=== PATIENT | male | born 1965 | race Caucasian/White ===

== ENCOUNTER 2022-03-13 16:39 | Inpatient (IN) ==
[2022-03-13 17:28] LABS: Basophils # (auto) 0.03 K/uL (0-0.2); Basophils % (auto) 0.4 %; Eosinophils # (auto) 0.11 K/uL (0-0.5); Eosinophils % (auto) 1.6 %; Hematocrit (blood only) 45.5 % (42-52); Hemoglobin 15.5 g/dL (14.0-18.0); Immature Granulocytes # (auto) 0.01 K/uL (0.00-0.02); Immature Granulocytes % (auto) 0.1 %; Lymphocytes # (auto) 1.55 K/uL (1.2-3.4); Mean Corpuscular Hemoglobin 30.4 pg (25-34); Mean Corpuscular Hgb Conc 34.1 g/dL (32-36); Mean Corpuscular Volume 89.2 fL (80-100); Mean Platelet Volume 8.5 fL (7.4-10.4); Monocytes # (auto) 0.39 K/uL (0.11-0.59); Monocytes % (auto) 5.5 %; Neutrophils # (auto) 4.96 K/uL (1.4-6.5); Neutrophils % (auto) 70.4 %; Platelet Count 369 K/uL (130-400); RDW Coefficient of Variation 15.1 % (11.5-14.5); RDW Standard Deviation 49.6 fL (36.4-46.3); White Blood Count 7.05 K/uL (4.8-10.8)
[2022-03-13 17:59] LABS: Alanine Aminotransferase 13 U/L (7-52); Albumin Globulin Ratio 1.2 (0.9-2); Alkaline Phosphatase 95 U/L (34-104); Anion Gap 8 (3-11); Aspartate Aminotransferase 13 U/L (13-39); BUN Creatinine Ratio 25.3 (10-20); Bilirubin,Total 0.7 mg/dl (0.2-1.0); Blood Urea Nitrogen 20 mg/dl (6-23); Calcium 9.2 mg/dl (8.5-10.1); Carbon Dioxide 25 mmol/L (21-32); Chloride 107 mmol/L (98-107); Est GFR (African American) 117.2 ml/min; Est GFR (Non-African American) 101.1 ml/min; Globulin 3.3 gm/dl (2.5-4.0); Glucose 113 mg/dl (70-99(Fasting)); Potassium 3.9 mmol/L (3.5-5.1); Sodium 140 mmol/L (136-145); Total Protein 7.3 gm/dl (6.0-8.3)
--- NOTE | 2022-03-13 19:05 | Surgery Consultation ---
Date of Consultation March 13, 2022 Assessment & Plan (1) Appendicitis: pt is a 57 year-old male who presents to Er with 3 weeks history abdominal pain, IMP: appendicitis, Plan, base on pt is full stomach with HTN 175/123, I recommend to admit to hospital and NPO, IV fluid, antibiotic, control pain, control HTN, with consult hospitalist , I will do laparoscopic appendectomy, possible open tomorrow morning, D/W benefits, risks and alternatives of the surgery, the risks - infection,bleeding, abscess, injury other organs, IA, DVT, stroke, , pt and his understood, they agree with the plan, I answered all questions, History of Present Illness Reason for Consultation: appendicitis History of Present Illness CC: abdominal pain for 3 weeks, HPI: pt is a 57 year-old male who presents to ER with 3 weeks history abdominal pain the pain is located at epigastric and RLQ area, with nausea, and vomiting, chills in and out, the pain is about 4/10, the pain is not radiate to back, pt denies chest pain, no diarrhea, no headache, no cough, pt had COVID-19 positive in 01/09, pt said he just ate large hamburger with drink 2-3 hours ago, pt had CT scan at outside hospital diagnosis- appendicitis, Allergies Allergy/AdvReac Type Severity Reaction Status Date / Time amoxicillin Allergy Severe RASH Verified 03/13/22 09:39 Iodinated Contrast Media Allergy Severe severe N/V Verified 03/13/22 09:39 morphine Allergy Severe SEVERE Verified 03/13/22 09:39 HYPERTENSION metrizamide Allergy Intermediate n/v Verified 03/13/22 09:39 ibuprofen [From Motrin] AdvReac Unknown r/t Verified 03/13/22 09:39 hematomachrosis Home Medications Medication Instructions Recorded Confirmed Type melatonin 3 mg capsule 3 mg PO HS PRN #90 cap 04/18/20 03/13/22 Rx metoprolol succinate 50 mg 50 mg PO HS 05/02/20 03/13/22 History tablet,extended release 24 hr (Toprol XL) nitroglycerin 0.4 mg sublingual 0.4 mg SL Q5M PRN #25 tab 05/02/20 03/13/22 Rx tablet (Nitrostat) aspirin 81 mg tablet,delayed 81 mg PO QAM 07/12/20 03/13/22 History release (Adult Low Dose Aspirin) magnesium 250 mg tablet 250 mg PO QAM 07/12/20 03/13/22 History riboflavin (vitamin B2) 400 mg 400 mg PO QAM 07/12/20 03/13/22 History tablet topiramate 50 mg tablet 50 mg PO QAM 07/12/20 03/13/22 History atorvastatin 20 mg tablet 20 mg PO HS #90 tab 02/25/22 03/13/22 Rx fluticasone propionate 93 1 spray INTRANASAL UD 03/13/22 03/13/22 History mcg/actuation breath activated aerosol (Xhance) meloxicam 15 mg tablet 15 mg PO DAILY 03/13/22 03/13/22 History Patient History Medical History CAD (coronary artery disease) Cholelithiasis Colon polyps COVID-19 virus infection Fatty liver Hereditary hemochromatosis Hyperlipidemia Migraine Morbid obesity Myocardial Infarction Osteoarthritis Surgical History H/O arthroscopic knee surgery H/O colonoscopy H/O shoulder surgery History of cardiac cath History of esophagogastroduodenoscopy (EGD) History of inguinal hernia repair History of knee replacement Family History Grandfather Prostate cancer Myocardial infarction Mother FH: uterine cancer Uncle Cancer Sister Migraines Other No family history of adverse response to anesthesia Social History Smoking Status: Never smoker Second Hand Exposure: No; Hx Alcohol Use: Yes Hx Substance Use: No Preferred Language: Angolan Communication Ability: Effective Industrial Editor Required: No Beliefs That Will Affect Care: None marital status: Current Living Situation: Spouse current occupational status: employed Feels Safe at Home: Yes Dental Care, Regularly: Yes Seatbelt Use: always Do you think of yourself as: straight/heterosexual Assistive Devices: Glasses Review of Systems Constitutional: obesity Eyes: as per Subjective / HPI Respiratory: as per Subjective / HPI COVID-19 + Cardiovascular: Additional Comments: HTN, IA, chest pain, CAD Gastrointestinal: as per Subjective / HPI ([place]) Musculoskeletal: as per Subjective / HPI Neurologic: as per Subjective / HPI Psychiatric: as per Subjective / HPI Endocrine: as per Subjective / HPI Hematologic / Lymphatic: as per Subjective / HPI Physical Exam Constitutional: obesity, no distress, Eyes: PERRL, conjunctivae normal, anicteric sclerae Neck: trachea midline, no thyromegaly Respiratory: normal respiratory effort, lungs clear to auscultation Cardiovascular: RRR, no murmur, no edema Gastrointestinal (Abdomen): soft. mild tenderness at RLQ, no rebound pain, BS +. no distend Musculoskeletal: no cyanosis or clubbing, extremities motor strength 5/5 Neurologic: patellar DTR's 2+ bilat, sensation intact Psychiatric: A+Ox3, euthymic affect Results & Data ([facility]) Vital Signs (Past 12 Hours) Vital Signs Temp Pulse Resp BP Pulse Ox 03/13/22 16:45 36.5 C 98 H 16 175/123 H 100 Laboratory Results Abnormal lab results 03/13/22 03/13/22 Range/Units 17:00 17:00 RDW Std Deviation 49.6 H (36.4-46.3) fL RDW Coeff of Varinder 15.1 H (11.5-14.5) % BUN/Creatinine Ratio 25.3 H (10-20) Glucose 113 H (70-99(Fasting)) mg/dl Diagnostic Findings CT OF THE ABDOMEN AND PELVIS WITH ORAL CONTRAST CLINICAL HISTORY: R10.32 - Left lower quadrant pain. COMPARISON STUDY: No previous studies for comparison. TECHNIQUE: Axial images of the abdomen and pelvis were obtained without IV contrast. Oral contrast was administered. Automated exposure control was utilized for the study. A dose lowering technique was utilized adhering to the principles of ALARA. FINDINGS: Lung bases are unremarkable. No pneumatosis, free air or portal venous gas is present. Punctate calculus within lower pole of the left kidney is noted. A few punctate right renal calculi are present. There are no ureteral calculi. There is no hydronephrosis or hydroureter. Evaluation of the remainder of the abdomen and pelvis is suboptimal on this unenhanced exam. There are numerous small gallstones within gallbladder. There is no evidence for acute cholecystit is. Unenhanced images of the liver, spleen, adrenal glands and pancreas are unremarkable. No peripancreatic or pericholecystic infiltration is present. No pancreatic or biliary ductal dilatation. There is no evidence for a bowel obstruction. No bowel wall thickening is identified on this unenhanced exam. The proximal to mid appendix is normal caliber and fills with oral contrast. The distal appendix is slightly dilated, measuring 8 mm in caliber. Cortical periappendiceal infiltration could be artifactual. There is no free air or abscess. There is no contrast within the appendiceal tip. No lymphadenopathy is present. No ascites is present. No acute fracture or suspicious lesion within visualized skeletal structures. IMPRESSION: 1. Findings equivocal for acute appendicitis. Mildly dilated appendiceal tip with possible trace periappendiceal stranding. Although not strongly suggestive of acute appendicitis, correlation with clinical evidence for acute appendicitis is recommended. 2. Punctate bilateral renal calculi. No ureteral calculi or hydronephrosis. 3. Cholelithiasis. No evidence for acute cholecystitis. 4. No bowel obstruction. No bowel wall thickening on unenhanced exam.
[2022-03-13] MEDS ORDERED: PIPERACILLIN/TAZOBACTAM 4.5 GM/120 ML BAG IV ONE (19:13)
[2022-03-13 19:15] LABS: Appearance Urine Cloudy (Clear); Bacteria Urine Automated Negative (Negative); Bilirubin Urine Negative (Negative); Blood Urine Negative (Negative); Color Urine Dark Yellow; Glucose Urine UA Negative (Negative); Ketones Urine Negative (Negative); Leukocyte Esterase Urine Negative (Negative); Nitrite Urine Negative (Negative); Protein Urine Negative (Negative); RBC Urine Automated 0-4 /hpf (0-4); Specific Gravity Urine 1.022 (1.000-1.030); Urobilinogen Urine Negative (Negative)
[2022-03-13] MEDS ORDERED: METOPROLOL SUCC 50MG EXT REL TAB PO STA (19:24)
--- NOTE | 2022-03-13 19:55 | Emergency Department Note ---
History of Present Illness General Chief Complaint: Abdominal Pain Stated Complaint: CONFIRMED APENDICITIS POST CT, DR DAVENPORT Time Seen by Provider: 03/13/22 17:57 History of Present Illness Provider Complaint: abdominal pain Onset (ago): 3 week(s) Pain Consistency: intermittent Location: RLQ Radiation: none Severity: moderate Maximum Pain Intensity: 5 Current Pain Intensity: 5 Quality: + stabbing, + aching and + sharp Relieved By: + nothing Exacerbated By: + nothing Context: no foreign travel, no possible food poisoning, no sick contacts, no recent antibiotic use, no recent surgery/procedure or no recent injury Associated Symptoms: no nausea, no vomiting, no diarrhea, no fever, no chills, no constipation, no dysuria, no hematemesis, no hematochezia, no melena, no hematuria, no anorexia, no syncope, no headache, no neck pain, no chest pain, no breathing difficulty and no numbness patient had outpatient ct which showed appendicitis Home Medications Medication Instructions Recorded Confirmed Type melatonin 3 mg capsule 3 mg PO HS PRN #90 cap 04/18/20 03/13/22 Rx metoprolol succinate 50 mg 50 mg PO HS 05/02/20 03/13/22 History tablet,extended release 24 hr (Toprol XL) nitroglycerin 0.4 mg sublingual 0.4 mg SL Q5M PRN #25 tab 05/02/20 03/13/22 Rx tablet (Nitrostat) aspirin 81 mg tablet,delayed 81 mg PO QAM 07/12/20 03/13/22 History release (Adult Low Dose Aspirin) magnesium 250 mg tablet 250 mg PO QAM 07/12/20 03/13/22 History riboflavin (vitamin B2) 400 mg 400 mg PO QAM 07/12/20 03/13/22 History tablet topiramate 50 mg tablet 50 mg PO QAM 07/12/20 03/13/22 History atorvastatin 20 mg tablet 20 mg PO HS #90 tab 02/25/22 03/13/22 Rx fluticasone propionate 93 1 spray INTRANASAL UD 03/13/22 03/13/22 History mcg/actuation breath activated aerosol (Xhance) meloxicam 15 mg tablet 15 mg PO DAILY 03/13/22 03/13/22 History Allergies Allergy/AdvReac Type Severity Reaction Status Date / Time amoxicillin Allergy Severe RASH Verified 03/13/22 09:39 Iodinated Contrast Media Allergy Severe severe N/V Verified 03/13/22 09:39 morphine Allergy Severe SEVERE Verified 03/13/22 09:39 HYPERTENSION metrizamide Allergy Intermediate n/v Verified 03/13/22 09:39 ibuprofen [From Motrin] AdvReac Unknown r/t Verified 03/13/22 09:39 hematomachrosis Past Med/Surg History Medical History CAD (coronary artery disease) 50% single vessel disease per pt Cholelithiasis Colon polyps COVID-19 virus infection Fatty liver Hereditary hemochromatosis Hyperlipidemia Migraine Morbid obesity Myocardial Infarction August 2017. follows with Dr Croft. Osteoarthritis Surgical History H/O arthroscopic knee surgery left knee H/O colonoscopy 07/18/2020 H/O shoulder surgery bilateral (multiple) History of cardiac cath August 2017 -- no stents. History of esophagogastroduodenoscopy (EGD) History of inguinal hernia repair History of knee replacement bilateral Family History Grandfather Prostate cancer Myocardial infarction Mother FH: uterine cancer Uncle Cancer Sister Migraines Other No family history of adverse response to anesthesia Social History Smoking Status: Never smoker Second Hand Exposure: No; Hx Alcohol Use: No Hx Substance Use: No Preferred Language: Upper Sorbian Communication Ability: Effective Bench Technician Required: No Beliefs That Will Affect Care: None marital status: Current Living Situation: Spouse current occupational status: employed Feels Safe at Home: Yes Dental Care, Regularly: Yes Seatbelt Use: always Do you think of yourself as: straight/heterosexual Assistive Devices: Glasses Review of Systems A total of 10 systems reviewed and were otherwise negative Physical Exam Vital Signs: Vital Signs - 24 hr 03/13/22 16:45 Temperature 36.5 C Temperature Source Oral Pulse Rate 98 H Respiratory Rate 16 Respiratory Effort / Characteristics Non-Labored Sponta neous Respiratory Depth Normal Blood Pressure 175/123 H Blood Pressure Marisol n 140 Pulse Oximetry 100 Oxygen Delivery Me thod Room Air Sepsis Recent Feve r Within 48 Hours No Sepsis New/Unexpla ined Change in Men celine Status N/A Sepsis Action Take n by Nursing No Action Required Physical Exam: Physical Exam GENERAL: He is oriented to person, place, and time. He appears well-developed and well-nourished. He does not appear distressed. HENT: Exam performed. - Head: Normocephalic and atraumatic. - Right Ear: External ear normal. No mastoid tenderness. - Left Ear: External ear normal. No mastoid tenderness. - Mouth/Throat: The oropharynx is clear and moist. No trismus in the jaw. No dental abscesses or uvula swelling. No oropharyngeal exudate or tonsillar abscesses. EYES: Conjunctivae and EOM are normal. Pupils are equal, round, and reactive to light. Right eye exhibits no discharge. Left eye exhibits no discharge. No scleral icterus. NECK: Normal range of motion. Neck supple. No JVD present. No spinous process tenderness present. No carotid bruit present. No rigidity. No tracheal deviation and normal range of motion present. No Brudzinski's sign and no Kernig's sign noted. CV: Normal rate, regular rhythm, normal heart sounds and intact distal pulses. There is no peripheral edema. Palpable radial pulses bue. PULM/CHEST: Effort normal and breath sounds normal. No respiratory distress. No stridor. He has no wheezes. He has no rales. - Chest Wall: He exhibits no tenderness. ABD: The abdomen is soft and obese. Bowel sounds are normal. He has no distension. No mass is present. There is diffuse tenderness. MUSC/SKEL: Normal range of motion. There is no peripheral edema, tenderness or deformity. LYMPH: No cervical adenopathy. NEURO: He is alert and oriented to person, place, and time. He has normal strength. No cranial nerve deficit or sensory deficit. Coordination and gait normal. GCS eye subscore is 4. GCS verbal subscore is 5. GCS motor subscore is 6. Cerebellar tests wnl. SKIN: Skin is warm and dry. He is not diaphoretic. PSYCH: He has a normal mood and affect. Behavior is normal. Judgment and thought content normal. Course Course 1756: The patient was evaluated in room B6. A complete history and physical exam was performed Cardiac monitoring: An order was placed for continuous cardiac monitoring. The monitor shows a rate of 90 with sinus rhythm EMR reviewed. Patient had outpatient CT abdomen today which showed possible appendicitis. General surgery will be consulted. 1900: Patient evaluated by general surgery. No OR today due to the patients last oral intake at 1500. Patient to be admitted to surgery for OR most likely tomorrow. Antibiotics ordered for the patient. Administered Medications Atorvastatin Calcium (Atorvastatin 20 Mg Tab) 20 mg PO HS [facility] Stop: 04/12/22 20:59 Last Admin: 03/13/22 21:55 Dose: 20 mg Documented by: [id number] Lactated Ringer's (Lr) 1,000 mls @ 80 mls/hr IV .[id number] [facility] Stop: 04/12/22 20:28 Last Admin: 03/13/22 20:29 Dose: 80 mls/hr Documented by: [id number] Ciprofloxacin (Cipro / D5w) 400 mg in 200 mls @ 100 mls/hr IV Q12H [facility]; Protocol Stop: 03/23/22 20:59 Last Admin: 03/13/22 21:43 Dose: 100 mls/hr Documented by: [id number] Metoprolol Succinate (Metoprolol Succ 50mg Ext Rel Tab) 50 mg PO [facility] Stop: 04/12/22 20:59 Last Admin: 03/13/22 21:55 Dose: 50 mg Documented by: [id number] Discontinued Medications Piperacillin Sod/Tazobactam Sod (Zosyn) 4.5 gm in 120 mls @ 240 mls/hr IV NOW ONE Stop: 03/13/22 19:42 Last Infusion: 03/13/22 21:21 Dose: 0 mls/hr Documented by: [id number] Admin: 03/13/22 20:51 Dose: 240 mls/hr Documented by: [id number] Metoprolol Succinate (Metoprolol Succ 50mg Ext Rel Tab) 50 mg PO NOW STA Stop: 03/13/22 19:25 Last Admin: 03/13/22 22:42 Dose: Not Given Documented by: [id number] Medical Decision Making Laboratory Data Result diagrams: 03/13/22 17:00 03/13/22 17:00 Lab Results 03/13/22 03/13/22 03/13/22 Range/Units 17:00 17:00 18:00 WBC 7.05 (4.8-10.8) K/uL RBC 5.10 (4.7-6.1) M/uL Hgb 15.5 (14.0-18.0) g/dL Hct 45.5 (42-52) % MCV 89.2 (80-100) fL MCH 30.4 (25-34) pg MCHC 34.1 (32-36) g/dL RDW Std Deviation 49.6 H (36.4-46.3) fL RDW Coeff of Varinder 15.1 H (11.5-14.5) % Plt Count 369 (130-400) K/uL MPV 8.5 (7.4-10.4) fL Immature Gran % (Auto) 0.1 % Neut % (Auto) 70.4 % Lymph % (Auto) 22.0 % Nye % (Auto) 5.5 % Eos % (Auto) 1.6 % Baso % (Auto) 0.4 % Neut # (Auto) 4.96 (1.4-6.5) K/uL Lymph # (Auto) 1.55 (1.2-3.4) K/uL Nye # (Auto) 0.39 (0.11-0.59) K/uL Eos # (Auto) 0.11 (0-0.5) K/uL Baso # (Auto) 0.03 (0-0.2) K/uL Immature Gran # (Auto) 0.01 (0.00-0.02) K/uL Sodium 140 (136-145) mmol/L Potassium 3.9 (3.5-5.1) mmol/L Chloride 107 (98-107) mmol/L Carbon Dioxide 25 (21-32) mmol/L Anion Gap 8 (3-11) BUN 20 (6-23) mg/dl Creatinine 0.79 (0.6-1.4) mg/dl Est Cr Clr Drug Dosing Not Reportable Est GFR ( Amer) 117.2 ml/min Est GFR (Non-Af Amer) 101.1 ml/min BUN/Creatinine Ratio 25.3 H (10-20) Glucose 113 H (70-99(Fasting)) mg/dl Calcium 9.2 (8.5-10.1) mg/dl Total Bilirubin 0.7 (0.2-1.0) mg/dl AST 13 (13-39) U/L ALT 13 (7-52) U/L Alkaline Phosphatase 95 (34-104) U/L Total Protein 7.3 (6.0-8.3) gm/dl Albumin 4.0 (3.4-5.0) gm/dl Globulin 3.3 (2.5-4.0) gm/dl Albumin/Globulin Ratio 1.2 (0.9-2) Urine Color Urine Appearance (Clear) Urine pH (4.5-7.5) Ur Specific [place] (1.000-1.030) Urine Protein (Negative) Urine Glucose (UA) (Negative) Urine Ketones (Negative) Urine Blood (Negative) Urine Nitrite (Negative) Urine Bilirubin (Negative) Urine Urobilinogen (Negative) Ur Leukocyte Esterase (Negative) Urine WBC (Auto) (0-5) /hpf Urine RBC (Auto) (0-4) /hpf U Hyaline Cast (Auto) (0-5) /lpf U Epithel Cells (Auto) (0-5) /lpf Urine Bacteria (Auto) (Negative) SARS-CoV-2, RNA, NAAT NEGATIVE (NEGATIVE) 03/13/22 Range/Units 18:55 WBC (4.8-10.8) K/uL RBC (4.7-6.1) M/uL Hgb (14.0-18.0) g/dL Hct (42-52) % MCV (80-100) fL MCH (25-34) pg MCHC (32-36) g/dL RDW Std Deviation (36.4-46.3) fL RDW Coeff of Varinder (11.5-14.5) % Plt Count (130-400) K/uL MPV (7.4-10.4) fL Immature Gran % (Auto) % Neut % (Auto) % Lymph % (Auto) % Nye % (Auto) % Eos % (Auto) % Baso % (Auto) % Neut # (Auto) (1.4-6.5) K/uL Lymph # (Auto) (1.2-3.4) K/uL Nye # (Auto) (0.11-0.59) K/uL Eos # (Auto) (0-0.5) K/uL Baso # (Auto) (0-0.2) K/uL Immature Gran # (Auto) (0.00-0.02) K/uL Sodium (136-145) mmol/L Potassium (3.5-5.1) mmol/L Chloride (98-107) mmol/L Carbon Dioxide (21-32) mmol/L Anion Gap (3-11) BUN (6-23) mg/dl Creatinine (0.6-1.4) mg/dl Est Cr Clr Drug Dosing Est GFR ( Amer) ml/min Est GFR (Non-Af Amer) ml/min BUN/Creatinine Ratio (10-20) Glucose (70-99(Fasting)) mg/dl Calcium (8.5-10.1) mg/dl Total Bilirubin (0.2-1.0) mg/dl AST (13-39) U/L ALT (7-52) U/L Alkaline Phosphatase (34-104) U/L Total Protein (6.0-8.3) gm/dl Albumin (3.4-5.0) gm/dl Globulin (2.5-4.0) gm/dl Albumin/Globulin Ratio (0.9-2) Urine Color Dark Yellow Urine Appearance Cloudy A (Clear) Urine pH 8.0 H (4.5-7.5) Ur Specific [place] 1.022 (1.000-1.030) Urine Protein Negative (Negative) Urine Glucose (UA) Negative (Negative) Urine Ketones Negative (Negative) Urine Blood Negative (Negative) Urine Nitrite Negative (Negative) Urine Bilirubin Negative (Negative) Urine Urobilinogen Negative (Negative) Ur Leukocyte Esterase Negative (Negative) Urine WBC (Auto) 1-5 (0-5) /hpf Urine RBC (Auto) 0-4 (0-4) /hpf U Hyaline Cast (Auto) 1-5 (0-5) /lpf U Epithel Cells (Auto) 10-20 H (0-5) /lpf Urine Bacteria (Auto) Negative (Negative) SARS-CoV-2, RNA, NAAT (NEGATIVE) [facility] Narrative 1757: The patient was evaluated in room B6. A complete history and physical exam was performed Cardiac monitoring: An order was placed for continuous cardiac monitoring. The monitor shows a rate of 90 with sinus rhythm EMR reviewed. Patient had outpatient CT abdomen today which showed possible appendicitis. General surgery will be consulted. 1900: Patient evaluated by general surgery. No OR today due to the patients last oral intake at 1500. Patient to be admitted to surgery for OR most likely tomorrow. Antibiotics ordered for the patient. Impression & Plan Acute appendicitis Discharge Plan Visit Data Chief Complaint: Abdominal Pain Stated Complaint: CONFIRMED APENDICITIS POST CT, REF Discharge Problem: Acute appendicitis Patient Disposition: Admitted As Inpatient Discharge Instructions Interventions: ED Discharge Assessment Last Done: 03/13/22 20:10 Discharge Problem: Acute appendicitis Qualifiers: Acute appendicitis type: unspecified acute appendicitis type Qualified Code(s): K35.80 - Unspecified acute appendicitis
[2022-03-13] MEDS ORDERED: HYDROmorphone INJ 0.5 MG/0.5 ML SYR IV PRN (20:29)
[2022-03-13] MEDS: LACTATED RINGER'S 1,000 ML IV SCH (20:29)
[2022-03-13] MEDS ORDERED: NITROGLYCERIN SL 0.4 MG/TAB TAB SL PRN (20:29)
[2022-03-13] MEDS ORDERED: MELATONIN 3 MG TAB PO PRN (20:55)
[2022-03-13] MEDS: CIPROFLOXACIN / D5W 400 MG/200 ML BAG IV SCH (21:43)
[2022-03-13] MEDS: METOPROLOL SUCC 50MG EXT REL TAB PO SCH (21:55)
[2022-03-13] MEDS: ATORVASTATIN 20 MG TAB PO SCH (21:55)
[2022-03-14 05:42] LABS: Mean Corpuscular Hgb Conc 33.4 g/dL (32-36); Mean Platelet Volume 8.3 fL (7.4-10.4); Platelet Count 299 K/uL (130-400)
[2022-03-14 06:14] LABS: Albumin Globulin Ratio 1.3 (0.9-2); Albumin Level 3.4 gm/dl (3.4-5.0); BUN Creatinine Ratio 25.4 (10-20); Bilirubin,Total 0.6 mg/dl (0.2-1.0); Calcium 8.4 mg/dl (8.5-10.1); Creatinine Clr Calc Pharmacy 178.6 ml/min; Est GFR (African American) 125.4 ml/min; Est GFR (Non-African American) 108.2 ml/min; Globulin 2.6 gm/dl (2.5-4.0); Potassium 3.9 mmol/L (3.5-5.1)
[2022-03-14 07:03] LABS: Basophils # (auto) 0.04 K/uL (0-0.2); Basophils % (auto) 0.7 %; Eosinophils # (auto) 0.16 K/uL (0-0.5); Eosinophils % (auto) 2.6 %; Hematocrit (blood only) 40.5 % (42-52); Hemoglobin 13.6 g/dL (14.0-18.0); Immature Granulocytes # (auto) 0.01 K/uL (0.00-0.02); Immature Granulocytes % (auto) 0.2 %; Lymphocytes # (auto) 1.41 K/uL (1.2-3.4); Mean Corpuscular Hemoglobin 29.6 pg (25-34); Monocytes # (auto) 0.58 K/uL (0.11-0.59); Monocytes % (auto) 9.4 %; Neutrophils # (auto) 3.94 K/uL (1.4-6.5); Neutrophils % (auto) 64.1 %; RDW Coefficient of Variation 15.5 % (11.5-14.5); RDW Standard Deviation 49.8 fL (36.4-46.3); White Blood Count 6.14 K/uL (4.8-10.8)
--- NOTE | 2022-03-14 07:32 | Anesthesiology Consultation ---
Date of Service March 14, 2022 Assessment & Plan (1) Encounter for pre-operative examination: Chart Review Chart Review: Acceptable Risk for Surgery (necessary surgery) and Patient NOT seen in Pre Admission Testing Consults Requested none History Surgery Operation Date: 03/14/22 07:00 Proposed Procedures p Laparoscopic Appendectomy - Trell Echols MD Height/Weight Height: 5 ft 10 in Weight: 143.9 kg Allergies Allergy/AdvReac Type Severity Reaction Status Date / Time amoxicillin Allergy Severe RASH Verified 03/13/22 09:39 Iodinated Contrast Media Allergy Severe severe N/V Verified 03/13/22 09:39 morphine Allergy Severe SEVERE Verified 03/13/22 09:39 HYPERTENSION metrizamide Allergy Intermediate n/v Verified 03/13/22 09:39 ibuprofen [From Motrin] AdvReac Unknown r/t Verified 03/13/22 09:39 hematomachrosis Medications Home Medications Medication Instructions Recorded Confirmed Last Taken melatonin 3 mg capsule 3 mg PO HS PRN #90 cap 04/18/20 03/13/22 07/04/20 22:00 metoprolol succinate 50 mg 50 mg PO HS 05/02/20 03/13/22 12/21/20 tablet,extended release 24 hr (Toprol XL) nitroglycerin 0.4 mg sublingual 0.4 mg SL Q5M PRN #25 tab 05/02/20 03/13/22 Unknown tablet (Nitrostat) aspirin 81 mg tablet,delayed 81 mg PO QAM 07/12/20 03/13/22 12/21/20 release (Adult Low Dose Aspirin) magnesium 250 mg tablet 250 mg PO QAM 07/12/20 03/13/22 12/21/20 riboflavin (vitamin B2) 400 mg 400 mg PO QAM 07/12/20 03/13/22 12/21/20 tablet topiramate 50 mg tablet 50 mg PO QAM 07/12/20 03/13/22 12/21/20 atorvastatin 20 mg tablet 20 mg PO HS #90 tab 02/25/22 03/13/22 Unknown fluticasone propionate 93 1 spray INTRANASAL UD 03/13/22 03/13/22 Unknown mcg/actuation breath activated aerosol (Xhance) meloxicam 15 mg tablet 15 mg PO DAILY 03/13/22 03/13/22 Unknown Active Medications Generic Name Dose Route Start Last Admin Trade Name Freq PRN Reason Stop Dose Admin Atorvastatin Calcium 20 mg 03/13/22 21:00 03/13/22 21:55 Atorvastatin 20 Mg Tab PO 04/12/22 20:59 20 mg HS PEDRITO Administration Lactated Ringer's 1,000 mls @ 80 mls/hr 03/13/22 20:29 03/13/22 20:29 Lr IV 04/12/22 20:28 80 mls/hr .[id number] PEDRITO Administration Ciprofloxacin 400 mg in 200 mls @ 100 mls/hr 03/13/22 21:00 03/13/22 23:45 Cipro / D5w IV 03/23/22 20:59 Infused Q12H PEDRITO Infusion Protocol Metoprolol Succinate 50 mg 03/13/22 21:00 03/13/22 21:55 Metoprolol Succ 50mg Ext Rel Tab PO 04/12/22 20:59 50 mg HS PEDRITO Administration NPO Date Last Intake of Fluids: 03/13/22 Time Last Intake of Fluids: 20:25 Date Last Intake of Solids: 03/13/22 Time Last Intake of Solids: 20:25 Past Medical History Medical History CAD (coronary artery disease) 50% single vessel disease per pt Cholelithiasis Colon polyps COVID-19 virus infection Fatty liver Hereditary hemochromatosis Hyperlipidemia Migraine Morbid obesity Myocardial Infarction August 2017. follows with Dr Croft. Osteoarthritis Past Family History Family History Grandfather Prostate cancer Myocardial infarction Mother FH: uterine cancer Uncle Cancer Sister Migraines Other No family history of adverse response to anesthesia Past Surgical History Surgical History H/O arthroscopic knee surgery left knee H/O colonoscopy 07/18/2020 H/O shoulder surgery bilateral (multiple) History of cardiac cath August 2017 -- no stents. History of esophagogastroduodenoscopy (EGD) History of inguinal hernia repair History of knee replacement bilateral Social History Smoking Status: Never smoker Do You Dip or Chew Tobacco: No Hx Alcohol Use: No alcohol intake frequency: holidays/special occasions only Hx Substance Use: No substance use type: does not use Physical Exam Vital Signs Last Vital Signs Temp 36.8 C 03/13/22 22:33 Pulse 83 03/13/22 22:33 Resp 18 03/13/22 22:33 BP 156/87 H 03/13/22 22:33 Pulse Ox 98 03/13/22 22:33 Testing Laboratory Results 03/14/22 05:21 03/14/22 05:21 Urine Color Dark Yellow 03/13/22 18:55 Urine Appearance Cloudy (Clear) A 03/13/22 18:55 Urine pH 8.0 (4.5-7.5) H 03/13/22 18:55 Ur Specific [place] 1.022 (1.000-1.030) 03/13/22 18:55 Urine Protein Negative (Negative) 03/13/22 18:55 Urine Glucose (UA) Negative (Negative) 03/13/22 18:55 Urine Ketones Negative (Negative) 03/13/22 18:55 Urine Nitrite Negative (Negative) 03/13/22 18:55 Ur Leukocyte Esterase Negative (Negative) 03/13/22 18:55 Urine WBC (Auto) 1-5 /hpf (0-5) 03/13/22 18:55 Urine RBC (Auto) 0-4 /hpf (0-4) 03/13/22 18:55 U Hyaline Cast (Auto) 1-5 /lpf (0-5) 03/13/22 18:55 U Epithel Cells (Auto) 10-20 /lpf (0-5) H 03/13/22 18:55 Urine Bacteria (Auto) Negative (Negative) 03/13/22 18:55 Electrocardiogram Date: 03/13/22 Findings: + NSR @ (89) Chest X-Ray Date: 03/13/22 XR chest 2V PA/lateral CLINICAL HISTORY: R07.9 - Chest pain, unspecified TECHNIQUE: 2 views of the chest were obtained. Comparison: Comparison is made to chest 2 views 10/04/2011 FINDINGS: No lines and tubes are seen. The cardiomediastinal silhouette is normal. Lungs are underinflated but clear. No evidence of pleural effusion or pneumothorax. IMPRESSION: No acute chest disease. ACT 112: Negative or not required by law. Electronically signed by: Gera Richard M.D. 03/13/2022 1:47 PM
[2022-03-14] MEDS ORDERED: LABETALOL HCL IV 5 MG/ML 20ML IV PRN (07:34)
[2022-03-14] MEDS ORDERED: ONDANSETRON INJ 2 MG/ML 2 ML VIAL IV PRN (07:34)
[2022-03-14] MEDS ORDERED: PHENYLEPHRINE 100MCG/ML 5ML SYR IV PRN (07:34)
[2022-03-14] MEDS ORDERED: ATROPINE SULFATE 0.1 MG/ML 10ML SYR IV PRN (07:34)
[2022-03-14] MEDS ORDERED: ePHEDrine sulfate 50 MG/ML AMP IV PRN (07:34)
[2022-03-14] MEDS ORDERED: MEPERIDINE HCL 25 MG/ML CARP/VIAL IV PRN (07:34)
[2022-03-14] MEDS: MELOXICAM 7.5 MG TAB PO SCH (07:49)
[2022-03-14] MEDS: FLUTICASONE FUROATE 100MCG 14 PUFFS/INHALER INH SCH (07:50)
[2022-03-14] MEDS: TOPIRAMATE 50 MG TAB PO SCH (07:51)
[2022-03-14] MEDS: MAGNESIUM OXIDE 400 MG TAB PO SCH (07:52)
[2022-03-14] MEDS ORDERED: NON-FORMULARY MEDICATION (Riboflavin (Vitamin B2) 400 mg tablet) PO SCH (09:00)
--- NOTE | 2022-03-14 10:12 | Electrocardiogram Report ---
Test Reason : Blood Pressure : / mmHG Vent. Rate : 089 BPM Atrial Rate : 089 BPM P-R Int : 166 ms QRS Dur : 084 ms QT Int : 354 ms P-R-T Axes : 038 051 051 degrees QTc Int : 430 ms Normal sinus rhythm Normal ECG When compared with ECG of 04-OCT-2011 14:05, No significant change was found Confirmed by Kevin Manrique ([id number]) on 03/14/2022 10:12:23 AM Referred By: Cristel Morales Confirmed By:Kevin Manrique
--- NOTE | 2022-03-14 12:06 | History & Physical Bridge Note ---
Date of Service March 14, 2022 History & Physical Bridge Note I have examined the patient, reviewed the History & Physical and in the interval since the performance of the History & Physical I have noted the following changes of clinical significance: no changes noted
[2022-03-14] MEDS ORDERED: BACITRACIN OINT 15 GM TUBE ONE (12:11)
[2022-03-14] MEDS ORDERED: LIDOCAINE 1% LOCAL 20 ML VIAL ONE (12:11)
[2022-03-14] MEDS ORDERED: BUPIVACAINE 0.5 % 5 MG/1 ML MPF 30ML VIAL ONE (12:11)
[2022-03-14] MEDS: CIPROFLOXACIN / D5W 400 MG/200 ML BAG IV SCH ×2 (12:15→21:40)
[2022-03-14] MEDS ORDERED: fentaNYL citrate 100 MCG/2 ML VIAL ONE ×2 (12:28→13:43)
[2022-03-14] MEDS ORDERED: ONDANSETRON INJ 2 MG/ML 2 ML VIAL ONE (12:29)
[2022-03-14] MEDS ORDERED: DEXAMETHASONE SOD INJ 4 MG/ML VIAL ONE (12:29)
[2022-03-14] MEDS ORDERED: ROCURONIUM BROMIDE 10 MG/ML 5 ML VIAL IV ONE (12:29)
[2022-03-14] MEDS ORDERED: SUCCINYLCHOLINE CHLORIDE 20 MG/ML 10 ML VIAL IV ONE (12:29)
[2022-03-14] MEDS ORDERED: LIDOCAINE 2% 2 ML VIAL/AMP(20MG/ML) INFIL ONE (12:29)
[2022-03-14] MEDS ORDERED: PROPOFOL IV EMULSION 10 MG/ML 20 ML VIAL IV ONE (12:29)
[2022-03-14] MEDS ORDERED: PHENYLEPHRINE HCL 10 MG/ML VIAL ONE (12:51)
[2022-03-14] MEDS ORDERED: GLYCOPYRROLATE 0.2 MG/ML VIAL ONE ×2 (13:24→14:07)
[2022-03-14] MEDS ORDERED: NEOSTIGMINE METHYLSULFATE 1 MG/ML 10ML VIAL ONE (13:24)
--- NOTE | 2022-03-14 13:55 | Hospitalist Consultation ---
Date of Consultation March 14, 2022 Assessment & Plan (1) Appendicitis: - POD#0 laparoscopic appendectomy. - Defer IVF, diet, pain management, DVT PPx, ABX to primary team. - CBC and BMP in AM. (2) Elevated d-dimer: - Performed on outpatient labs due to continuous chest pain since COVID-19 diagnosis in December 2021, D-dimer was 2220, result called in last night while patient was already presented to ED for appendicitis. - Cannot rule out using Wells criteria given his recent COVID-19 infection in December with ongoing chest pain, and right lower extremity swelling. Also tachycardic on presentation, palpation of this exclusively due to appendicitis or concomitant VTE. - Venous dopplers and chest CT to evaluate for DVT/PE, both without evidence for DVT or PE. - PESI score 85: Class 2, low risk 1.7 - 3.5% 30 day mortality. (3) CAD (coronary artery disease): - Continues to have sternum pain that he is experienced since his COVID infection in December 2021. Pain is present at rest and exertion, reproducible on exam, worsened with coughing, without radiation, n/v, numbness/tingling, diaphoresis. Work-up for VTE as above. - Continue metoprolol, atorvastatin, nitroglycerin as needed. - Restart aspirin tomorrow. - Cardiac cath in August 2017: 50% lesion in mid ramus, no PCI. (4) Hypertension: - Continue metoprolol. (5) Hyperlipidemia: - Continue atorvastatin 20 mg. (6) Migraine: - Continue topiramate 50 mg daily and riboflavin. (7) Fatty liver: - LFTs wnl today, previously seen by [facility] in [place] 09/2021 noted to have early cirrhosis (MRI without nodularity noted, high FibroScan score) was also getting phlebotomy done Q3 months at that time for hemochromatosis. (8) Hereditary hemochromatosis: Supervising Physician Co-Signing Physician Notes Patient seen and examined, chart reviewed, case discussed with Zenobia Sullivan PA-C and I agree with the assessment and plan as above except as otherwise noted General: A&Ox3. NAD. Cooperative. HEENT: Atraumatic, normocephalic. Vision/hearing grossly intact. Pulm: CTAB A&P. -wheezes, -rales, -rhonchi. Symmetrical chest rise. No increase in work of breathing. No respiratory distress. Cardiac: RRR, -mrg. Radial pulses intact and symmetrical. Abdominal: Postop incisions with overlying dressing C/C/I, minimally tender overlying incisions and remaining abdomen nontender without rebound/rigidity. Labs and images reviewed 57-year-old male with laparoscopic appendectomy. Outpatient D-dimer with some reports of leg swelling for which he underwent a Doppler and CTA, no signs of PE or DVT. CTA did show evidence of gallbladder distention, this was reviewed with patient. He reports he has known gallstones and is followed by luster applicator. Has declined to have this removed in the past, but will follow-up as outpatient. Did also discuss this with surgical provider who did not recommend cholecystectomy at this time. Reports his abdominal pain is greatly improved following appendix removal. Agree with management as above. History of Present Illness Reason for Consultation: Medication management Attending Physician: Trell Echols MD History of Present Illness Mr. Yung is a 37-year-old male with past medical history of CAD, HTN, HLD, fatty liver, obesity, who presented with abdominal pain and subsequently diagnosed with appendicitis on CT. He was admitted to the hospital last evening for fluids, antibiotics, pain control, with plan for laparoscopic appendectomy this morning, which was successful with no complications. At the time of my visit, patient is resting comfortably without complaints, except as detailed below. Before presentation yesterday, patient was at PCP and had outpatient labs done for evaluation of his chest pain that he has been having chronically since COVID infection in December 2021. A D-dimer was ordered and result was called to patient during the evening while he was in the ED that his D-dimer was 2220. At the time consult the hospitalist team was placed, patient had already been brought down to the OR. During my visit, he and states that he has been having central chest pain exacerbated by a chronic cough and reproducible with palpation to the chest wall since he was diagnosed with COVID 2 months ago. He had also been having right ankle swelling since October, before the COVID infection. They attributed this to his arthritis. On my exam, he is still having the chest pain, rating it an 8/10, but it is unchanged from what he has been feeling over the past few months. He was tachycardic upon evaluation in the ED last night, however hard to identify if tachycardia and elevated D-dimer is related exclusively to appendicitis or if he may have DVT/PE. Therefore, we will obtain lower extremity dopplers and CT of the chest to look for VTE. Medications include daily aspirin 81 daily, atorvastatin 20 mg daily, metoprolol 50 mg daily, nitroglycerin prn, riboflavin and topiramate 50 mg daily (migraines), fluticasone intranasal daily, magnesium daily, melatonin prn at night, meloxicam daily for pain. Allergies Allergy/AdvReac Type Severity Reaction Status Date / Time amoxicillin Allergy Severe RASH Verified 03/13/22 09:39 Iodinated Contrast Media Allergy Severe severe N/V Verified 03/13/22 09:39 morphine Allergy Severe SEVERE Verified 03/13/22 09:39 HYPERTENSION metrizamide Allergy Intermediate n/v Verified 03/13/22 09:39 ibuprofen [From Motrin] AdvReac Unknown r/t Verified 03/13/22 09:39 hematomachrosis Home Medications Medication Instructions Recorded Confirmed Type melatonin 3 mg capsule 3 mg PO HS PRN #90 cap 04/18/20 03/13/22 Rx metoprolol succinate 50 mg 50 mg PO HS 05/02/20 03/13/22 History tablet,extended release 24 hr (Toprol XL) nitroglycerin 0.4 mg sublingual 0.4 mg SL Q5M PRN #25 tab 05/02/20 03/13/22 Rx tablet (Nitrostat) aspirin 81 mg tablet,delayed 81 mg PO QAM 07/12/20 03/13/22 History release (Adult Low Dose Aspirin) magnesium 250 mg tablet 250 mg PO QAM 07/12/20 03/13/22 History riboflavin (vitamin B2) 400 mg 400 mg PO QAM 07/12/20 03/13/22 History tablet topiramate 50 mg tablet 50 mg PO QAM 07/12/20 03/13/22 History atorvastatin 20 mg tablet 20 mg PO HS #90 tab 02/25/22 03/13/22 Rx fluticasone propionate 93 1 spray INTRANASAL UD 03/13/22 03/13/22 History mcg/actuation breath activated aerosol (Xhance) meloxicam 15 mg tablet 15 mg PO DAILY 03/13/22 03/13/22 History oxycodone-acetaminophen 5 mg-325 1 tab PO Q4H PRN #12 tab 03/15/22 Rx mg tablet (Percocet) Patient History Medical History CAD (coronary artery disease) 50% single vessel disease per pt Cholelithiasis Colon polyps COVID-19 virus infection Fatty liver Hereditary hemochromatosis Hyperlipidemia Migraine Morbid obesity Myocardial Infarction August 2017. follows with Dr Croft. Osteoarthritis Surgical History H/O arthroscopic knee surgery left knee H/O colonoscopy 07/18/2020 H/O shoulder surgery bilateral (multiple) History of cardiac cath August 2017 -- no stents. History of esophagogastroduodenoscopy (EGD) History of inguinal hernia repair History of knee replacement bilateral Family History Grandfather Prostate cancer Myocardial infarction Mother FH: uterine cancer Uncle Cancer Sister Migraines Other No family history of adverse response to anesthesia Social History Smoking Status: Never smoker Second Hand Exposure: No; Hx Alcohol Use: No Hx Substance Use: No Preferred Language: Honduran Communication Ability: Effective Glass Cut Off Tender Required: No Beliefs That Will Affect Care: None marital status: Current Living Situation: Spouse current occupational status: employed Feels Safe at Home: Yes Dental Care, Regularly: Yes Seatbelt Use: always Do you think of yourself as: straight/heterosexual Assistive Devices: None Review of Systems Review of Systems: Constitutional: No fever/chills, weakness, fatigue, myalgias, anorexia, night sweats Eyes: No diplopia, no worsening or blurred vision ENT: normal hearing, no trouble swallowing Respiratory: No cough, sputum, dyspnea at rest or on exertion Cardiovascular: Reproducible, central sternal pain that has been present since COVID infection in December 2021; No chest pain, tightness or palpitations Abdomen: No pain, nausea, vomiting, diarrhea or constipation : Denies dysuria, hematuria, increased urgency/frequency, urinary retention Musculoskeletal: No joint pain, calf pain, swelling Neurologic: No weakness, numbness/tingling, or balance problems Psychiatric: No anxiety or depression Skin: No rash or itch Physical Exam Physical Exam: General: Resting comfortably in bed status post lap appendectomy, alert, on 2L NC Head: Normocephalic, atraumatic ENT: PERRL, EOMI, no pharyngeal exudate, mucous membranes moist Chest: Clear to auscultation, on room air, no adventitious breath sounds Cardiac: Tenderness with palpation to sternum; regular rate and rhythm, no murmur, no JVD, normal peripheral pulses, good capillary refill Abdominal: NABS x 4 quadrants, soft, nontender to palpation, no rebound, guarding or tenderness Extremities: Normal inspection, no peripheral edema or erythema, calfs nontender to palpation Psych: Normal mood and affect Neuro: AAO x 3, strength intact bilaterally and rated 5/5, no motor deficits, speech is clear, no peripheral sensory deficits Skin: no rash or erythema Results & Data Results & Data ([facility]) Vital Signs (Past 12 Hours) Vital Signs Temp Pulse Resp BP Pulse Ox 03/14/22 08:25 37 C 85 20 124/78 97 03/14/22 07:34 36.9 C 79 18 101/64 94 Laboratory Results Abnormal lab results 03/13/22 03/13/22 03/13/22 Range/Units 17:00 17:00 18:55 RBC (4.7-6.1) M/uL Hgb (14.0-18.0) g/dL Hct (42-52) % RDW Std Deviation 49.6 H (36.4-46.3) fL RDW Coeff of Varinder 15.1 H (11.5-14.5) % Chloride (98-107) mmol/L BUN/Creatinine Ratio 25.3 H (10-20) Glucose 113 H (70-99(Fasting)) mg/dl Calcium (8.5-10.1) mg/dl AST (13-39) U/L Urine Appearance Cloudy A (Clear) Urine pH 8.0 H (4.5-7.5) U Epithel Cells (Auto) 10-20 H (0-5) /lpf 03/14/22 03/14/22 Range/Units 05:21 05:21 RBC 4.60 L (4.7-6.1) M/uL Hgb 13.6 L (14.0-18.0) g/dL Hct 40.5 L (42-52) % RDW Std Deviation 49.8 H (36.4-46.3) fL RDW Coeff of Varinder 15.5 H (11.5-14.5) % Chloride 108 H (98-107) mmol/L BUN/Creatinine Ratio 25.4 H (10-20) Glucose (70-99(Fasting)) mg/dl Calcium 8.4 L (8.5-10.1) mg/dl AST 12 L (13-39) U/L Urine Appearance (Clear) Urine pH (4.5-7.5) U Epithel Cells (Auto) (0-5) /lpf PG Care Time/CCT Total # of Minutes Spent Total Time Spent with Patient: Total time spent is greater than 50% in coordination of care (as documented) at patient's floor/unit and/or counseling patient: Coding Level of Care Code 87624 Inpt Consult Level 4 Diagnoses Appendicitis K37 Fatty liver K76.0 Migraine G43.909 CAD (coronary artery disease) I25.10 Hyperlipidemia E78.5 Hereditary hemochromatosis E83.110 Hypertension I10 Elevated d-dimer R79.89
[2022-03-14] MEDS ORDERED: SUGAMMADEX SODIUM 200 MG/2 ML VIAL IV ONE (14:04)
--- NOTE | 2022-03-14 14:10 | Post Operative Brief Note ---
Immediate Post Op Note v1 Date of Surgery March 14, 2022 Pre & Post Diagnosis Operation Date: 03/14/22 07:00 Pre-Op Diagnosis: Appendicitis Post-Op Diagnosis: Appendicitis I identified the patient and participated in the time-out.: Yes Procedure Operation Date: 03/14/22 07:00 Actual Procedures p Laparoscopic Appendectomy(Not Applicable) - Trell Echols MD Surgeon Trell Echols MD Data Analytics Developer surgical garment fitter Estimated Blood Loss 10 Findings Consistent with Post-Op Diagnosis Fluids 1500ml Specimens appendix Anesthesia Type General Complications none Disposition Accompanied Patient To Recovery: Yes
[2022-03-14] MEDS ORDERED: DROPERIDOL 5 MG/2 ML VIAL IV STA (14:24)
[2022-03-14] MEDS: fentaNYL citrate 100 MCG/2 ML VIAL IV PRN ×2 (14:37→14:42)
--- NOTE | 2022-03-14 14:58 | Anesthesiology Progress Note ---
Date of Service March 14, 2022 Anesthesia Post Procedure Vital Signs Vital Signs: Temp Pulse Pulse Pulse Pulse Resp BP 03/14/22 14:50 74 18 03/14/22 14:40 75 18 03/14/22 14:30 75 17 03/14/22 14:20 36.4 C L 87 16 03/14/22 08:25 37 C 85 20 03/14/22 07:34 36.9 C 79 18 03/13/22 22:33 36.8 C 83 18 03/13/22 20:25 36.8 C 83 16 03/13/22 20:12 84 20 03/13/22 16:45 36.5 C 98 H 16 175/123 H BP Pulse Ox 03/14/22 14:50 129/78 95 03/14/22 14:40 124/74 95 03/14/22 14:30 126/80 99 03/14/22 14:20 136/85 99 03/14/22 08:25 124/78 97 03/14/22 07:34 101/64 94 03/13/22 22:33 156/87 H 98 03/13/22 20:25 156/87 H 98 03/13/22 20:12 104/73 99 03/13/22 16:45 100 Pain Intensity Bilateral Abdomen: Pain Intensity: 4 Transfer of Care Handoff Completed per policy Notes Mental Status: alert / awake / arousable Patient Amnestic to Procedure: Yes Nausea / Vomiting: adequately controlled Pain: adequately controlled Airway Patency, RR, SpO2: stable & adequate BP & HR: stable & adequate Hydration State: stable & adequate Anesthetic Complications: no major complications apparent
[2022-03-14] MEDS ORDERED: diphenhydrAMINE 50 MG/ML VIAL IV ONE (17:02)
[2022-03-14] MEDS ORDERED: ONDANSETRON INJ 2 MG/ML 2 ML VIAL IV ONE (17:03)
[2022-03-14] MEDS: ASPIRIN 81 MG ECTAB PO SCH (17:44)
[2022-03-14] MEDS ORDERED: OPTIRAY 320 125ml IV ONE (17:59)
--- NOTE | 2022-03-14 18:23 | CT Scan Report ---
CT ANGIOGRAPHY OF THE CHEST, PULMONARY EMBOLUS PROTOCOL CLINICAL HISTORY: d dimer 2220, recent COVID infxn, chest pain. Status post laparoscopic appendectomy earlier today. COMPARISON STUDY: Chest radiograph March 13, 2022. TECHNIQUE: Patient was premedicated for IV dye allergy as per protocol. Following IV administration o f 120 mL of Optiray, helical axial images of the chest were obtained utilizing the pulmonary embolus protocol. Maximal intensity projections and sagittal and coronal reformats were viewed on an [employer] / ?.?? 3D workstation. IV contrast was administered without complication. Automated exposure control was utilized for the study. A dose lowering technique was utilized adhering to the principles of ALA RA. CT DOSE: 1270.12 mGy.cm FINDINGS: No pulmonary emboli are identified. There is no thoracic aortic dissection. Cardiac size i s at the upper limits of normal. There is no pericardial effusion. No enlarged thoracic lymph nodes a re noted. No pneumothorax or pleural effusion is noted. Subpleural groundglass opacities reflect atel ectasis. There is no consolidation to suggest pneumonia. A 4 mm right upper lobe nodule on image 234 of 321 is likely benign. Visualized portions of the upper abdomen demonstrate hepatic steatosis. A sm all amount of pneumoperitoneum is postsurgical. There are gallstones within the gallbladder. Gallblad bea is mildly distended. No pericholecystic stranding. IMPRESSION: 1. No pulmonary emboli identified. 2. No acute process within the chest. 3. Cholelithiasis. Mild gallbladder distention without pericholecystic infiltration. If right upper q uadrant pain, ultrasound is recommended. 4. Small amount of pneumoperitoneum which is postsurgical. ACT 112: Negative or not required by law. Electronically signed by: Siddharth Emerson M.D. 03/14/2022 6:21 PM
--- NOTE | 2022-03-14 18:43 | Ultrasound Report ---
RIGHT LOWER EXTREMITY VENOUS DOPPLER CLINICAL HISTORY: Right lower extremity swelling, d dimer, 2220, COVID in december COMPARISON STUDY: No previous studies for comparison. TECHNIQUE: Sonography of the deep venous system of the right lower extremity was performed. Compress ion and augmentation were evaluated. FINDINGS: The right common femoral, superficial femoral and popliteal veins were compressible. Augme ntation was normal. Flow was shown within the deep calf vessels. IMPRESSION: No evidence of deep venous thrombus within the right lower extremity. ACT 112: Negative or not required by law. Electronically signed by: Siddharth Emerson M.D. 03/14/2022 6:41 PM
[2022-03-14] MEDS: LACTATED RINGER'S 1,000 ML IV SCH ×2 (21:25→21:28)
[2022-03-14] MEDS: METOPROLOL SUCC 50MG EXT REL TAB PO SCH (21:30)
--- NOTE | 2022-03-14 21:52 | Operative Report (OR) ---
DATE OF SERVICE: 03/14/2022 PREOPERATIVE DIAGNOSIS: Acute appendicitis. POSTOPERATIVE DIAGNOSIS: Acute appendicitis. OPERATION: Laparoscopic appendectomy. SURGEON: Trell Echols MD. ANESTHESIA: General. ESTIMATED BLOOD LOSS: About 20 mL. FINDINGS: Acute appendicitis. COMPLICATIONS: None. INDICATIONS FOR THE PROCEDURE: This is a 57-year-old gentleman who presented to ED with acute abdomi nal pain. The patient had a CT scan diagnosis of acute appendicitis. I recommended to do laparoscop ic appendectomy, possible open. I did talk to the patient about the benefit, risk, alternate procedu re. I indicated the risks may include, but not limited to, such as bleeding, infection, abscess, inj ury to other organs, incisional hernia. The patient understands. He signed informed consent and I a nswered all questions. DETAILS OF PROCEDURE: After we identified the patient and verified the procedure, we brought the pat ient to the OR, put the patient in the supine position on the OR table. The patient received SCD on bilateral legs to prevent DVT. Also, patient received 400 mg of Cipro IV for prophylactic antibiotic . The patient received general anesthesia without difficulty. The abdomen was prepped and draped in routine sterile fashion. After timeout, I injected the local anesthesia by using 1% lidocaine mixed with 0.5% Marcaine just above the umbilicus, then I made a small incision just above umbilicus, open ed fascia, opened peritoneum. Under direct vision, put a Jerel trocar in, connected to CO2 to creat e pneumoperitoneum, flow rate at 6 liters per minute, pressure not more than 14 mmHg. Once we got a nice pneumoperitoneum, we put a camera in, looked around the abdomen, it shows normal f inding on the small bowel, large bowel and then we put another two 5 mm trocars in the left lower montez drant area, so we mobilized the cecum and found the patient had acute appendicitis with appendix that is enlarged with inflammation. Once we confirmed the diagnosis, I used the Harmonic, mobilized the appendiceal, rechecked, no active bleeding. Then, we used the Endo-DEISY stapler for transection on e base of the appendix. Then, rechecked the staple line, intact, no leak and no active bleeding. en, we removed the appendix through the catch bag. Then, we reinserted the Jerel trocar in, connected to CO2 to create pneumoperitoneum, again looked a round the abdomen, no active bleeding, no leak from the staple line. Then, we removed all trocars un bea direct vision. No active bleeding from the trocar site. Pneumoperitoneum was released, then I c losed the umbilical incision fascial layer by using 0 Vicryl [id number] x2, closed subcutaneous layer by using 2-0 Vicryl interruptedly, closed skin by using 4-0 Vicryl continuous running, closed a nother two 5 mm trocar site of skin only by using 4-0 Vicryl. Then, we put the dressing on. The patient tolerated the procedure well. All instrument, needle and sponge counts were correct x2 a t the end of the case. The patient was transferred to recovery room in stable condition. The specim en was sent to pathology. After the procedure, I did talk to the patient about the OR finding and th e procedure we did, the patient understands. Job ID: [id number]
[2022-03-14] MEDS: ATORVASTATIN 20 MG TAB PO SCH (22:03)
[2022-03-15] MEDS: oxyCODONE/ACETAMINOPHEN 5mg/325mg TAB PO PRN ×3 (03:56→12:26)
[2022-03-15 07:29] LABS: Basophils # (auto) 0.01 K/uL (0-0.2); Basophils % (auto) 0.1 %; Hematocrit (blood only) 40.3 % (42-52); Hemoglobin 13.9 g/dL (14.0-18.0); Immature Granulocytes # (auto) 0.03 K/uL (0.00-0.02); Immature Granulocytes % (auto) 0.3 %; Lymphocytes # (auto) 0.88 K/uL (1.2-3.4); Lymphocytes % (auto) 9.4 %; Mean Corpuscular Hemoglobin 30.1 pg (25-34); Mean Corpuscular Hgb Conc 34.5 g/dL (32-36); Mean Corpuscular Volume 87.2 fL (80-100); Mean Platelet Volume 8.5 fL (7.4-10.4); Monocytes # (auto) 0.76 K/uL (0.11-0.59); Monocytes % (auto) 8.1 %; Neutrophils # (auto) 7.66 K/uL (1.4-6.5); Neutrophils % (auto) 82.1 %; Platelet Count 335 K/uL (130-400); RDW Coefficient of Variation 15.3 % (11.5-14.5); RDW Standard Deviation 48.7 fL (36.4-46.3); Red Blood Count 4.62 M/uL (4.7-6.1); White Blood Count 9.34 K/uL (4.8-10.8)
[2022-03-15] MEDS: CIPROFLOXACIN / D5W 400 MG/200 ML BAG IV SCH (08:17)
[2022-03-15] MEDS: MELOXICAM 7.5 MG TAB PO SCH (08:18)
[2022-03-15] MEDS: FLUTICASONE FUROATE 100MCG 14 PUFFS/INHALER INH SCH (08:18)
[2022-03-15] MEDS: MAGNESIUM OXIDE 400 MG TAB PO SCH (08:18)
[2022-03-15] MEDS: TOPIRAMATE 50 MG TAB PO SCH (08:18)
[2022-03-15] MEDS: ASPIRIN 81 MG ECTAB PO SCH (08:18)
[2022-03-15 08:19] LABS: Albumin Globulin Ratio 1.3 (0.9-2); Albumin Level 3.4 gm/dl (3.4-5.0); BUN Creatinine Ratio 20.6 (10-20); Bilirubin,Total 0.7 mg/dl (0.2-1.0); Calcium 8.6 mg/dl (8.5-10.1); Est GFR (African American) 124.6 ml/min; Est GFR (Non-African American) 107.5 ml/min; Globulin 2.6 gm/dl (2.5-4.0); Potassium 3.9 mmol/L (3.5-5.1)
--- NOTE | 2022-03-15 14:22 | Discharge Summary ---
Date of Service March 15, 2022 Admission HPI Per Admitting Provider HPI: pt is a 57 year-old male who presents to ER with 3 weeks history abdominal pain the pain is located at epigastric and RLQ area, with nausea, and vomiting, chills in and out, the pain is about 4/10, the pain is not radiate to back, pt denies chest pain, no diarrhea, no headache, no cough, pt had COVID-19 positive in 01/09, pt said he just ate large hamburger with drink 2-3 hours ago, pt had CT scan at outside hospital diagnosis- appendicitis, Principal Diagnosis Acute appendicitis Discharge Exam Constitutional WD/WN, vitals as above no acute distress and not ill appearing Neck normal visual inspection and trachea midline Respiratory normal respiratory effort; no respiratory distress Gastrointestinal (Abdomen) Inspection/Auscultation: abdomen normal to inspection and + abdominal surgical incision (Clean dry and intact); abdomen not distended Percussion/Palpation: + abdomen tender (At incision sites) and abdomen soft; no guarding and abdomen not rigid Skin no rashes, warm and dry Psychiatric A+Ox3, euthymic affect Discharge Data Allergies Allergy/AdvReac Type Severity Reaction Status Date / Time amoxicillin Allergy Severe RASH Verified 03/13/22 09:39 Iodinated Contrast Media Allergy Severe severe N/V Verified 03/13/22 09:39 morphine Allergy Severe SEVERE Verified 03/13/22 09:39 HYPERTENSION metrizamide Allergy Intermediate n/v Verified 03/13/22 09:39 ibuprofen [From Motrin] AdvReac Unknown r/t Verified 03/13/22 09:39 hematomachrosis Consultations 03/13/22 18:10 ED Decision to Admit Stat 03/13/22 19:24 Consult Hospitalist Stat Procedures Performed Operation Date: 03/14/22 07:00 Actual Procedures p Laparoscopic Appendectomy(Not Applicable) - Trell Echols MD Ordered Studies 03/14/22 16:16 CT angio chest PE protocol Urgent 03/14/22 16:22 US venous doppler LE RT Stat Hospital Course (1) Appendicitis: Patient was admitted to the hospital from the emergency room and started on IV fluids, IV antibiotics kept n.p.o. and plan for laparoscopic appendectomy the following morning. Patient was taken to the operating room for laparoscopic appendectomy and was found to have acute appendicitis without perforation or abscess. Patient tolerated procedure well and was transferred to recovery then back to medical/surgical floor for postoperative care. Medicine was also consulted for his chronic chest pain since his COVID infection in October and elevated D-dimer which was done with outpatient labs. Lower extremity Doppler and CTA were completed to rule out pulmonary embolism which was negative. His home medications were continued. IV fluids and IV antibiotics were continued p.o. Percocet and IV Dilaudid were ordered as needed for pain. Diet was advanced to clear liquids. Patient was evaluated on postop day #1. Afebrile, vital signs stable, pain controlled with oral pain medication, no nausea no vomiting, tolerating clear liquids. Patient was discharged home on postop day #1 in stable condition Total Time Total Time Spent Total Time Spent (In Minutes): 20 Total Time Includes: Examination of the Patient, Discharge Planning and Medication Reconciliation Discharge Plan Discharge Items Patient Disposition: Home - Self-Care Reason For Visit: VOMITING, LOWER ABDOMINAL PAIN Discharge Diagnosis: Acute appendicitis Activity: Per Instructions section Non-emergency contact: Primary Care Provider and Surgeon Call non-emergency contact if: you have any medication questions, your pain is not controlled, your pain is worsening, your pain is concerning for you, you have a fever, your temperature is above 101, your wound has increased redness, your wound has increased drainage and your wound pain has increased Follow-up/Referrals: Caitlyn Anaya MD [Primary Care Provider] - Trell Echols MD [Physician] - 03/27/22 2:15 pm Diet: Regular Addtl Attending Provider Instructions: Post-Surgical ~Discharge Instructions Activity Recommendations: - lifting limitation: (20 pounds for 4 weeks), - exercise/sex/sports limit: (nonstrenuous for 2 weeks), - driving or machine use limit: (none for 1 week), - Shower/bathe limit: (march shower beginning Saturday) Diet: - Resume previous diet SPECIAL CARE INSTRUCTIONS: - May shower on Saturday. Let water run over area and pat dry. - Leave steri strips on for one week and then remove. - Call the surgeon's office with any questions or concerns - - (ex. temperature higher than 101 degrees F, excessive bleeding or pain). MEDICATIONS: - Resume previous medications unless instructed otherwise by your surgeon. - Can take extra strenght Tylenol and Ibuprofen as needed for mild to moderate pain -650 mg Tylenol every 6 hours as needed - Ibuprofen 600 mg every 6 hours as needed (take with food) - Percocet 1 every 4 hours, as needed for moderate to severe pain FOLLOW UP VISIT: - If not already scheduled, please call the office to schedule a two week follow-up appointment. Office number Stand-Alone Forms: [facility], Work/School Release, Smoking Cessation Medications and DC Order Prescriptions: New oxycodone-acetaminophen [Percocet] 5-325 mg tablet 1 tab PO Q4H PRN (Reason: pain) Qty: 12 RF: 0 Continued atorvastatin 20 mg tablet 20 mg PO HS Qty: 90 RF: 3 melatonin 3 mg capsule 3 mg PO HS PRN (Reason: sleep) Qty: 90 RF: 3 metoprolol succinate [Toprol XL] 50 mg tablet extended release 24 hr 50 mg PO HS RF: 0 nitroglycerin [Nitrostat] 0.4 mg tablet, sublingual 0.4 mg SL Q5M PRN (Reason: chest pain) Qty: 25 RF: 2 aspirin [Adult Low Dose Aspirin] 81 mg tablet,delayed release (DR/EC) 81 mg PO QAM RF: 0 magnesium 250 mg tablet 250 mg PO QAM RF: 0 topiramate 50 mg tablet 50 mg PO QAM RF: 0 riboflavin (vitamin B2) 400 mg tablet 400 mg PO QAM RF: 0 meloxicam 15 mg tablet 15 mg PO DAILY RF: 0 Xhance 93 mcg/actuation aerosol breath activated 1 spray INTRANASAL UD RF: 0 Discharge Orders: Discharge Order (Routine); Ordered 03/15/22 Ordered By: Judith Ambriz/Other Patient Handouts: Surgery for Appendicitis Admission Data Admit Date/Time: 03/13/22 19:13 Attending Provider: Trell Echols Admit Provider: Trell Echols Primary Care Provider: Caitlyn Anaya Other Providers: Trell Echols ; Scotty Blank Other Interventions: Discharge Summary Assessment (RN) Last Done: 03/15/22 11:40
== END 2022-03-15 13:45 | disposition home or self-care (01) | DRG 342 ==
LOC: ED 16:39 → 3W 19:13